=== PATIENT | male | born 1960 | race Caucasian/White ===

== ENCOUNTER 2020-03-25 18:13 | Emergency (ER) | payer MEDICAID ==
[~2020-03-25] VITALS: Ht 162.6 cm; Wt 64.4 kg
[2020-03-25] MEDS ORDERED: NACL 0.9% 1,000 ML IV ONE (18:18)
--- NOTE | 2020-03-25 18:20 | NUR ---
ER at bedside examining patient.
[2020-03-25 18:21] VITALS: BP_SYST 136
--- NOTE | 2020-03-25 18:21 | NUR ---
Patient to ER bed 02 to gown for evaluation. Side rails up.
--- NOTE | 2020-03-25 18:25 | NUR ---
Patient brought in by ALS complaining of tachycardia of 172 bpm upon arrival from [facility]. reports he stopped drinking 3 days with history of alcohol, started feeling rapid heart rate today. denies any nausea, vomiting, palpitations, cough, shortness of breath. History of heroin abuse last usage 7 years ago. No other complaints/injuries per patient or as noted. Will continue to monitor.
[2020-03-25] MEDS ORDERED: ONDANSETRON HCL 4 MG/2 ML VIAL IVP ONE (18:30)
[2020-03-25] MEDS ORDERED: DILTIAZEM HCL 25 MG/5 ML VIAL IVP ONE (18:30)
--- NOTE | 2020-03-25 18:30 | NUR ---
# 22 gauge angiocath placed to left ankle. Use of asceptic technique. Opsite placed over site. Blood return noted. Blood for lab drawn from site. Flushed with 10 cc of normal saline. No evidence of infiltration noted. Patient tolerated well.
--- NOTE | 2020-03-25 18:35 | NUR ---
Cardizem 20mg IVP given HR 157 BP 136/115
--- NOTE | 2020-03-25 18:40 | NUR ---
Post Cardizem HR is 97. BP 122/59
[2020-03-25 18:43] LABS: BASOPHILS # (AUTO) 0.2 K/uL (0.0-0.2); BASOPHILS % (AUTO) 1.3 % (0.0-2.0); EOSINOPHILS # (AUTO) 0.4 K/uL (0.0-0.4); EOSINOPHILS % (AUTO) 2.6 % (0.0-4.0); HEMATOCRIT 37.8 % (36-54); HEMOGLOBIN 12.2 g/dL (14.0-18.0); LYMPHOCYTES # (AUTO) 2.5 K/uL (1.0-5.5); LYMPHOCYTES % (AUTO) 18.3 % (20.5-51.5); MEAN CORPUSCULAR HEMOGLOBIN 28 pg (27-31); MEAN CORPUSCULAR HGB CONC 32 % (32-36); MEAN CORPUSCULAR VOLUME 88 fL (79.0-98.0); MONOCYTES # (AUTO) 1.1 K/uL (0.0-1.0); MONOCYTES % (AUTO) 7.7 % (1.7-9.3); NEUTROPHILS # (AUTO) 9.5 K/uL (1.8-7.7); NEUTROPHILS % (AUTO) 70.1 % (40.0-70.0); PLATELET COUNT (AUTO) 237 K/uL (130-430); RED BLOOD CELL COUNT(AUTO) 4.27 MIL/uL (4.2-6.2); RED CELL DISTRIBUTION WIDTH 18.1 % (9.0-15.0); WHITE BLOOD COUNT (AUTO) 13.6 K/uL (4.8-10.8)
[2020-03-25 18:48] LABS: ANION GAP 8 (5-15); CALCIUM 8.8 mg/dL (8.4-11.0); CHLORIDE 97 mmol/L (98-107); CREATININE 1.27 mg/dL (0.55-1.30); GLUCOSE 115 mg/dL (70-99); POTASSIUM 4.7 mmol/L (3.5-5.1); SODIUM SERUM 130 mmol/L (136-145); UREA NITROGEN, BLOOD 26 mg/dL (8-21)
[2020-03-25 18:49] LABS: GFR AFRICAN AMERICAN 75 mL/min (>90)
[2020-03-25 18:54] LABS: ALANINE AMINOTRANSFERASE 33 U/L (12-78); ALBUMIN 3.1 g/dL (3.4-4.8); ASPARTATE AMINOTRANSFERASE 36 U/L (10-37); TOTAL BILIRUBIN 0.4 mg/dL (0.0-1.0)
[2020-03-25 18:55] LABS: ALCOHOL, BLOOD < 3 mg/dL (<10)
[2020-03-25] MEDS ORDERED: LORazepam 2 MG/ML VIAL IVP ONE (19:00)
--- NOTE | 2020-03-25 19:16 | NUR ---
report given to CARMELITA Tinsley
[2020-03-25 19:50] LABS: BILIRUBIN,URINE NEGATIVE (NEGATIVE); BLOOD, URINE NEGATIVE (NEGATIVE); CLARITY/URINE CLEAR (CLEAR); COLOR,URINE YELLOW (YELLOW); GLUCOSE,URINE NEGATIVE (NEGATIVE); KETONES,URINE NEGATIVE (NEGATIVE); LEUKOCYTE ESTERASE ,URINE NEGATIVE (NEGATIVE); NITRITE, URINE NEGATIVE (NEGATIVE); PH,URINE 6.5 (5.0-8.0); PROTEIN URINE NEGATIVE (NEGATIVE); UROBILINOGEN,URINE 0.2 (0.2-1.0)
--- NOTE | 2020-03-25 20:31 | NUR ---
Pt aware he cannot have a smoking break outside hospital, and pt verbalized understanding
--- NOTE | 2020-03-25 21:40 | NUR ---
VSS no s/s of acute distress Resting on gurney rails up
--- NOTE | 2020-03-25 22:45 | NUR ---
Dr. Curry bedside for pt update
[2020-03-25] MEDS ORDERED: NEU300 PO (23:17)
[2020-03-25] MEDS ORDERED: MOM PO (23:17)
[2020-03-25] MEDS ORDERED: ANT30 PO (23:17)
[2020-03-25] MEDS ORDERED: PHE25 PO (23:17)
[2020-03-25] MEDS ORDERED: TRAZ-250 PO (23:17)
[2020-03-25] MEDS ORDERED: MIRT15TA7 PO (23:17)
[2020-03-25] MEDS ORDERED: HYDR-3698 PO (23:17)
[2020-03-25] MEDS ORDERED: THIA100T70 PO (23:17)
[2020-03-25] MEDS ORDERED: MULT-1117 PO (23:17)
[2020-03-25] MEDS ORDERED: METHADOSE PO (23:17)
[2020-03-25] MEDS ORDERED: APIX5TAB4 PO (23:17)
[2020-03-25] MEDS ORDERED: LORA2TAB95 PO (23:17)
[2020-03-25] MEDS ORDERED: PHENERGAN IM (23:17)
[2020-03-25] MEDS ORDERED: LOPE2CAP PO (23:17)
[2020-03-25] MEDS ORDERED: CAT.1 PO (23:17)
[2020-03-25] MEDS ORDERED: FOLI-43 PO (23:17)
[2020-03-25] MEDS ORDERED: ACET-2165 PO (23:17)
[2020-03-25] MEDS ORDERED: CARV6.2554 PO (23:17)
[2020-03-25] MEDS ORDERED: MET10 PO (23:17)
[2020-03-25] MEDS ORDERED: DILTIAZEM HCL 120 MG CAP.SR.24H PO ONE (23:45)
--- NOTE | 2020-03-26 | NUR ---
Pt require verbal reminder regarding not being able to exit hospital property for smoking break
[2020-03-26 00:15] VITALS: BP_SYST 122
--- NOTE | 2020-03-26 00:15 | NUR ---
Patient given written and verbal discharge instructions and verbalizes understanding. ER MD discussed with patient the results and treatment provided. Patient in stable condition. ID arm band removed. IV catheter removed intact and dressing applied, no active bleeding. Rx of Cardizem given. Patient educated on pain management and to follow up with PMD. Pain Scale 0/10 Opportunity for questions provided and answered. Medication side effect fact sheet provided.
== END 2020-03-26 00:15 | disposition home or self-care (01) ==
LOC: SED 18:13
DX: I48.91 Unspecified atrial fibrillation (principal); F10.239 Alcohol dependence with withdrawal, unspecified; Z88.0 Allergy status to penicillin; Z79.899 Other long term (current) drug therapy; Y90.1 Blood alcohol level of 20-39 mg/100 ml
CPT/HCPCS: 36415; 71045; 80053; 81003; 82550; 84484; 85025; 93005; 96361; 96374; 96375; 99285; G0482; J2060; J2405; J3490; J7030